=== PATIENT | male | born 1950 | race Caucasian/White ===

== ENCOUNTER → 2021-01-30 15:13 | Outpatient (POV) | payer OTHER, SELFPAY | PROVIDERS: Visit Provider Dermatology | DX: Z00.00 Encounter for general adult medical examination without abnormal findings (principal) ==

== ENCOUNTER → 2021-12-04 13:42 | Outpatient (CLI) | payer MEDICARE, SELFPAY ==
--- NOTE | 2021-12-04 13:52 | XR_ITS ---
FINAL REPORT CLINICAL HISTORY: R ANKLE PAIN FINDINGS: RIGHT ANKLE: Three views of the right ankle were obtained. There is no acute fracture or dislocation. There are moderate degenerative changes. There is valgus angulation at the tibiotalar joint. There is a small plantar calcaneal spur. There is soft tissue swelling. There are multiple soft tissue calcifications. IMPRESSION: Moderate degenerative changes with valgus angulation of the tibiotalar joint. Reviewed, Interpreted and Dictated by Reynold Duval III, MD Transcribed by Kobe Coon Authenticated and [facility]
== END ==
PROVIDERS: PCP Family Medicine; Visit Provider Family Medicine
DX: M25.571 Pain in right ankle and joints of right foot (principal)
CPT/HCPCS: 73610

== ENCOUNTER → 2022-03-15 09:16 | Outpatient (CLI) | payer MEDICARE, SELFPAY ==
--- NOTE | 2022-03-15 09:22 | XR_ITS ---
FINAL REPORT CLINICAL HISTORY: pain FINDINGS: Left ankle Three views were obtained. There is no acute fracture or dislocation. There are severe degenerative changes. There is widening of the medial ankle mortise. No soft tissue abnormality is identified. IMPRESSION: Severe degenerative changes. Reviewed, Interpreted and Dictated by Raisa Harvey MD Transcribed by Heidi Graham Authenticated and [facility]
== END ==
PROVIDERS: PCP Family Medicine; Visit Provider Orthopaedic Surgery
DX: M25.572 Pain in left ankle and joints of left foot (principal)
CPT/HCPCS: 73610

== ENCOUNTER → 2022-04-08 09:40 | Outpatient (CLI) | payer MEDICARE, OTHER, SELFPAY | PROVIDERS: PCP Family Medicine; Visit Provider Orthopaedic Surgery Adult Reconstructive Orthopaedic Surgery | DX: Z01.812 Encounter for preprocedural laboratory examination (principal); Z11.52 Encounter for screening for COVID-19 | CPT/HCPCS: C9803; U0003; U0005 ==

== ENCOUNTER 2023-12-09 11:16 | Outpatient (CLI) | payer MEDICARE, OTHER, SELFPAY ==
--- OUTSIDE RECORDS SUMMARY | 2023-12-09 11:19 | XMS_ITS ---
Author Organization [facility] Address [address] [place] [id number] Care Team Providers Care Chop Saw Operator Name Role Phone Sofia Eid Primary Care Provider [phone] ALLERGIES No Known Allergies RESULTS Component Value Reference Range Notes P-Comprehensive Metabolic Pa dale (CMP) Reviewed date:06/30/2023 10:14:36 AM Interpretation: Performing Lab: Notes/Report: Test performed by [facility] [address] [place] [address] , [address], [place] [address] Asad Chatman MD, Social Media Marketer CLIA: [id number] Sodium 140 135-145 mEq/L Potassium 4.7 3.5-5.3 mEq/L Chloride 108 97-108 mEq/L CO2 20 22-32 mEq/L Glucose 93 65-99 mg/dL BUN 38 8-23 mg/dL Creatinine 1.42 0.70-1.30 mg/dL Calcium 9.5 8.6-10.4 mg/dL eGFR by Creatinine 53 >59 mL/min/1.73m2 Protein 6.7 6.0-8.3 g/dL Albumin 4.3 3.5-5.3 g/dL Alkaline Phosphatase 76 40-129 IU/L ALT (SGPT) 14 <5-55 IU/L AST (SGOT) 18 <5-46 IU/L Bilirubin, Total 0.5 <0.2-1.2 mg/dL A/G Ratio 1.8 1.1-2.5 mg/dL P-Lipid Panel Reviewed date:06/30/2023 10:14:36 AM Interpretation: Performing Lab: Notes/Report: Test performed by [facility], [address] [place] [address] Asad Chatman MD, Social Media Marketer CLIA: [id number] Cholesterol 135 <200 mg/dL Triglycerides 123 <150 mg/dL HDL Cholesterol 31 >39 mg/dL Cholesterol / HDL Ratio 4.35 0.00-4.99 Ratio Non-HDL Cholesterol 104 <130 mg/dL LDL Cholesterol (Calculation) 79 <130 mg/dL LDL Cholesterol Levels* Less than 100 mg/dL Optimal 100 to 129 mg/dL Near Optimal/ Above Optimal 130 to 159 mg/dL Borderline High 160 to 189 mg/dL High 190 mg/dL and above Very High * Categories as recommended by the 2004 ATPIII guidelines LDL/HDL Ratio 2.6 <3.3 Ratio LDL Cholesterol Patient History Test Date: 06/26/2023 LDL Results: 79 Units: mg/dL % Change: - P-PSA Reviewed date:06/30/2023 10:14:36 AM Interpretation: Performing Lab: Notes/Report: Test performed by [facility] [address] [place], [place] [address] Asad Chatman MD, Social Media Marketer CLIA: [id number] PSA 0.21 <4.00 ng/mL Please note this is an ultrasensitive PSA assay with a lower limit of detection of 0.014 ng/mL. This test is performed by the [employer] ECLIA methodology. Values obtained with different assay methods or kits cannot be directly compared. P-Uric Acid Reviewed date:06/30/2023 10:14:36 AM Interpretation: Performing Lab: Notes/Report: Test performed by [facility] [address] [place] [address] , [address], [place] [address] Asad Chatman MD, Social Media Marketer CLIA: [id number] Uric Acid 5.7 3.4-8.0 mg/dL REASON FOR VISIT refills, Needs labs with PSA & colon cancer screening MEDICATIONS Medication SIG (Take, Route, Frequency, Duration) Notes Start Date End Date Status Aspirin 81 81MG DIRECTED QD Active Meloxicam 7.5 MG 1 tab(s) orally once a day Active traMADol HCl 50 MG 1 tab(s) orally thre e times a day as needed 01/17/2022 Active Fish Oil 1000MG 2 A DAY P.O. DAILY Active Niacin 250 MG 1 tab(s) orally TID Active Lisinopril-hydroCHLOROthiaz mikal 20-12.5 MG 1 tab(s) orally once a day Active Allopurinol 300 MG 1 tab(s) orally once a day Active Metoprolol Tartrate 50 MG 1 tab(s) orall y Two times a day Active Lovastatin 20 MG 2 tab(s) orally once a day Active VITAL SIGNS Weight 241.6 lbs 06/26/2023 Blood pressure systolic 134 mm Hg 06/26/19 24 Blood pressure diastolic 72 mm Hg 024 Heart Rate 58 /min 06/26/2023 Height 70 in 06/26/2023 BMI 34.66 kg/m2 06/26/2023 Encounters Encounter Location Date Provider Diagnosis [facility] [address] [place] [id number] 06/26/2023 Sofia Eid HTN (hypertension) I 10 ; Mixed hyperlipidemia E78.2 ; Hyperuricemia E79.0 ; Primary osteoarthritis M19.91 and Screening for prostate cancer Z12.5 ASSESSMENTS Encounter Date Diagnosis Assessment Notes Treatment Notes Treatment Clinical Notes 06/26/2023 HTN (hypertension) (ICD-10 - I10) 06/26/2023 Mixed hyperlipidemia (ICD-10 - E78.2) 06/26/2023 Hyperuricemia (ICD-1 0 - E79.0) 06/26/2023 Primary osteoarthritis (ICD-10 - M19.91) 06/26/2023 Screening for prostate cancer (ICD-10 - Z12.5) PLAN OF TREATMENT Medication Medication Name Sig Start Date Stop Date Notes Meloxicam 7.5 MG 1 tab(s) orally once a day Lisinopril-hydroCHLOROthiazi de 20-12.5 MG 1 tab(s) orally once a day Allopurinol 300 MG 1 tab(s) orally once a day Metoprolol Tartrate 50 MG 1 tab(s) orall y Two times a day Lovastatin 20 MG 2 tab(s) orally once a day Next Appt Details Follow Up: 6 Months, Reason: Progress Notes * Examination Category Sub-Category Detail Notes Cardiology Lungs: clear, no rales or wheezes HEENT: sclera and conjuncti va clear, PERRLA, TM's normal, translucent Heart sounds: RRR, normal S1, S2 Abdomen: positive BS, soft, n ontender Carotid upstroke: normal, no bruits Extremities: no leg edema. He is wearing ankle braces bilaterally. Murmur, click , gallop: none General Appearance: pleasant, NAD. History and Physical Notes * HPI (History of Present Illness) Category Sub-Category Detail Notes Cardiology Blood Pressure Elevated Pt prese nts today for a check up and refills. Pt is fasting today. Pt sts that he has no new concerns or complaints at this time
--- OUTSIDE RECORDS SUMMARY | 2023-12-09 11:19 | XMS_ITS ---
Author Organization [facility] Address [address] [facility] [address] [place] [id number] Care Team Providers Care Taxi Dancer Name Role Phone Sofia Eid Primary Care Provider REASON FOR VISIT Test results Encounters Encounter Location Date Provider Diagnosis [facility] [address] [place] [id number] 06/30/2023 Sofia Eid PLAN OF TREATMENT No Information
--- OUTSIDE RECORDS SUMMARY | 2023-12-09 11:19 | XMS_ITS ---
Author Organization [facility] Address [address] [place] [id number] Care Team Providers Care Marketing Ambassador Name Role Phone Sofia Eid Primary Care Provider ALLERGIES No Known Allergies REASON FOR VISIT check up and refills, Needs labs, colon cancer screening, & flu vaccine MEDICATIONS Medication SIG (Take, Route, Frequency, Duration) Notes Start Date End Date Status Metoprolol Tartrate 50 MG 1 tab(s) orall y Two times a day Active Lisinopril-hydroCHLOROthiaz mikal 20-12.5 MG 1 tab(s) orally once a day Active Allopurinol 300 MG 1 tab(s) orally once a day Active Allopurinol 300 MG 1 tab(s) orally once a day Active Lovastatin 20 MG 2 tab(s) orally once a day Active Fish Oil 1000MG 2 A DAY P.O. DAILY Active Niacin 250 MG 1 tab(s) orally TID Active traMADol HCl 50 MG 1 tab(s) orally thre e times a day as needed 01/17/2022 Active Lovastatin 20 MG 2 tab(s) orally once a day Active Lisinopril-hydroCHLOROthiaz mikal 20-12.5 MG 1 tab(s) orally once a day Active Meloxicam 7.5 MG 1 tab(s) orally once a day Active Aspirin 81 81MG DIRECTED QD Active IMMUNIZATIONS Vaccine Route Administration Date Status Comme nts Fluzone High Dose (65yr and older) IM Intramuscular 12/09/2023 Administered VITAL SIGNS Weight 243.6 lbs 12/09/2023 Blood pressure systolic 126 mm Hg 12/09/19 24 Blood pressure diastolic 78 mm Hg 024 Heart Rate 53 /min 12/09/2023 Height 70 in 12/09/2023 BMI 34.95 kg/m2 12/09/2023 Encounters Encounter Location Date Provider Diagnosis [facility] [address] [facility] [address] [place] [id number] 12/09/2023 Sofia Eid HTN (hypertension) I 10 ; Mixed hyperlipidemia E78.2 ; Hyperuricemia E79.0 ; Primary osteoarthritis M19.91 ; Screening for prostate cancer Z12.5 and Encounter for immunization Z23 ASSESSMENTS Encounter Date Diagnosis Assessment Notes Treatment Notes Treatment Clinical Notes 12/09/2023 HTN (hypertension) (ICD-10 - I10) 12/09/2023 Mixed hyperlipidemia (ICD-10 - E78.2) 12/09/2023 Hyperuricemia (ICD-1 0 - E79.0) 12/09/2023 Primary osteoarthritis (ICD-10 - M19.91) 12/09/2023 Screening for prostate cancer (ICD-10 - Z12.5) 12/09/2023 Encounter for immunization (ICD-10 - Z23) PLAN OF TREATMENT Medication Medication Name Sig Start Date Stop Date Notes Metoprolol Tartrate 50 MG 1 tab(s) orall y Two times a day Lisinopril-hydroCHLOROthiazi de 20-12.5 MG 1 tab(s) orally once a day Allopurinol 300 MG 1 tab(s) orally once a day Lovastatin 20 MG 2 tab(s) orally once a day Meloxicam 7.5 MG 1 tab(s) orally once a day Pending Test Test Name Order Date P-Comprehensive Metabolic Panel (CMP) P-Lipid Panel 12/09/2023 P-Uric Acid 12/09/2023 Next Appt Details Follow Up: 6 Months, [...] of Present Illness) Category Sub-Category Detail Notes Endocrinology Maintenance Pt presents toda y for a check up and refills. Pt is fasting today and would like to get his flu shot today. Pt sts that he has no new concerns or complaints at this time
--- OUTSIDE RECORDS SUMMARY | 2023-12-09 11:20 | XMS_ITS | Patient Health Record ---
Author Organization [facility] Address [address] [place] [id number] Care Team Providers Care Dog Bather Name Role Phone Sofia Eid Primary Care Provider ALLERGIES No Known Allergies RESULTS Component Value Reference Range Notes Glycohemoglobin A1c (in hous e) Reviewed date:12/26/2022 08:52:38 AM Interpretation:5.7 Performing Lab: Notes/Report: 5.7 glycohemoglobin 5.7% 5 - 6.5 % Lipid Panel (in house) Reviewed date:12/26/2022 08:52:38 AM Interpretation: Performing Lab: Notes/Report: Total Cholesterol 128 0 - 200 md/dL HDL 30 45 - 45 mg/dL Trigs 127 0 - 150 LDL 73 0 - 100 mg/dL non-HDL 98 TC/HDL 4.3 P-Comprehensive Metabolic Pa dale (CMP) Reviewed date:12/26/2022 08:52:38 AM Interpretation:bun 40 Performing Lab: Notes/Report: Test performed by [facility] , [address], [place] [address] Asad Chatman MD, Fund Development Manager CLIA: [id number] Sodium 138 135-145 mEq/L Potassium 4.8 3.5-5.3 mEq/L Chloride 102 97-108 mEq/L CO2 25 22-32 mEq/L Glucose 92 65-99 mg/dL BUN 40 8-23 mg/dL Creatinine 1.24 0.70-1.30 mg/dL Calcium 9.3 8.6-10.4 mg/dL eGFR by Creatinine 62 >59 mL/min/1.73m2 Protein 7.0 6.0-8.3 g/dL Albumin 4.3 3.5-5.3 g/dL Alkaline Phosphatase 70 40-129 IU/L ALT (SGPT) 16 <5-55 IU/L AST (SGOT) 16 <5-46 IU/L Bilirubin, Total 0.5 <0.2-1.2 mg/dL A/G Ratio 1.6 1.1-2.5 mg/dL P-Uric Acid Reviewed date:12/26/2022 08:52:38 AM Interpretation:Normal Performing Lab: Notes/Report: Test performed by [facility] [address] [place] [address] , [address], [place] [address] Asad Chatman MD, Fund Development Manager CLIA: [id number] Uric Acid 6.0 3.4-8.0 mg/dL P-Comprehensive Metabolic Pa dale (CMP) Reviewed date:06/30/2023 10:14:36 AM Interpretation: Performing Lab: Notes/Report: Test performed by [facility] [address] [place] [address] , [address], [place] [address] Asad Chatman MD, Fund Development Manager CLIA: [id number] Sodium 140 135-145 mEq/L Potassium 4.7 3.5-5.3 [...] Interpretation: Performing Lab: Notes/Report: Test performed by [facility] [address] [place] [address] [place] [address] Asad Chatman MD, Fund Development Manager CLIA: [id number] Cholesterol 135 <200 mg/dL Triglycerides 123 <150 [...] Interpretation: Performing Lab: Notes/Report: Test performed by [facility] [address] [place], [place] [address], [place] [address] Asad Chatman MD, Fund Development Manager CLIA: [id number] PSA 0.21 <4.00 ng/mL Please note this is an ultrasensitive PSA assay with a lower limit of detection of 0.014 ng/mL. This test is performed by the [employer] ECLIA methodology. Values obtained with different assay methods or kits cannot be directly compared. P-Uric Acid Reviewed date:06/30/2023 10:14:36 AM Interpretation: Performing Lab: Notes/Report: Test performed by [facility] [address] [place] [address] , [address], [place] [address] Asad Chatman MD, Fund Development Manager CLIA: [id number] Uric Acid 5.7 3.4-8.0 mg/dL REASON FOR REFERRAL No Information MEDICATIONS Medication SIG (Take, Route, Frequency, Duration) Notes Start Date End Date Status Metoprolol Tartrate 50 MG 1 tab(s) orall y Two times a day Active Lisinopril-hydroCHLOROthiaz mikal 20-12.5 MG 1 tab(s) orally once a day Active Meloxicam 7.5 MG 1 tab(s) orally once a day Active Aspirin 81 81MG DIRECTED QD Active Fish Oil 1000MG 2 A DAY P.O. DAILY Active Allopurinol 300 MG 1 tab(s) orally once a day Active Allopurinol 300 MG 1 tab(s) orally once a day Active Lovastatin 20 MG 2 tab(s) orally once a day Active Niacin 250 MG 1 tab(s) orally TID Active traMADol HCl 50 MG 1 tab(s) orally thre e times a day as needed 01/17/2022 Active Lovastatin 20 MG 2 tab(s) orally once a day Active Lisinopril-hydroCHLOROthiaz mikal 20-12.5 MG 1 tab(s) orally once a day Active IMMUNIZATIONS Vaccine Route Administration Date Status Comme nts COVID 19 Moderna Unknown 04/19/2020 Administered COVID 19 Moderna Unknown 05/17/2020 Administered COVID 19 Moderna Unknown 12/13/2020 Administered Fluzone High Dose (65yr and older) IM Intramuscular 11/04/2017 Administered Fluzone High Dose (65yr and older) IM Intramuscular 12/04/2018 Administered Fluzone High Dose (65yr and older) IM Intramuscular 10/19/2019 Administered Fluzone High Dose (65yr and older) IM Intramuscular 11/22/2020 Administered Fluzone High Dose (65yr and older) IM Intramuscular 12/04/2021 Administered Fluzone High Dose (65yr and older) IM Intramuscular 11/26/2022 Administered Fluzone High Dose (65yr and older) IM Intramuscular 12/09/2023 Administered Fluzone Quad (6months&older) IM Intramuscular 10/25/2014 Administered Fluzone Quad (6months&older) IM Intramuscular 10/27/2015 Administered Fluzone Quad (6months&older) IM Intramuscular 11/01/2016 Administered Hepatitis A (adult) IM Intramuscular 08/03/2018 Administer ed PNEUMOVAX 23 VACCINE IM Intramuscular 11/25/2012 Administered PNEUMOVAX 23 VACCINE IM Intramuscular 07/21/[address] given by [address] [facility] PNEUMOVAX 23 VACCINE Unknown 07/21/2020 Administered Prevnar (PCV13) IM Intramuscular 11/04/2017 Administered Shingrix Unknown 11/04/2017 Pending Shingrix Unknown 12/03/2017 Administered Shingrix Unknown 03/18/2018 Administered Tetanus Tdap-Adacel (over 7yrs) IM Intramuscular 02/02/2008 Administered Tetanus Tdap-Adacel (over 7yrs) IM Intramuscular 11/04/2017 Administered xFlu shot-36 months and older IM Intramuscular 12/30/2005 Administered xFlu shot-36 months and older IM Intramuscular 02/05/2007 Administered xFlu shot-36 months and older IM Intramuscular 12/11/2007 Administered xFlu shot-36 months and older IM Intramuscular 11/10/2008 Administered xFlu shot-36 months and older IM Intramuscular 01/16/2010 Administered xFlu shot-36 months and older IM Intramuscular 01/14/2011 Administered xFluzone (6mos and older)-trivalent IM Intramuscular 01/28/2012 Administered xFluzone (6mos and older)-trivalent IM Intramuscular 11/08/2013 Administered xFluzone Intradermal (18-64yrs)-trivalen t ID Intradermal 11/25/2012 Administered SOCIAL HISTORY Sex Assigned At : Social History Observation Description Sex Assigned At Unknown PROBLEMS Problem Type ICD Code Onset Dates Problem Status W/U Status Risk SNOMED Code Notes Problem HTN (hypertension) (I10) Active confirmed Hypertension (15912333) Problem Otitis externa (H60.90) Active confirmed Otitis externa (5780936) Problem Hyperuricemia (E79.0) Active confirmed Hyperuricemia (45589239) Problem Mixed hyperlipidemia (E78.2) Active confirmed Mixed hyperlipidemia (658193922) Problem Presence of right artificial hip joint (Z96.641) Active confirmed 701163346 Problem Presence of left artificial hip joint (Z96.642) Active confirmed History of artificial joint (003628090) Problem BMI 35.0-35.9,adult (Z68.35) Active confirmed 322360833 Problem Primary osteoarthritis (M19.91) Active confirmed Primary osteoarthritis (598048889) Problem BMI 34.0-34.9,adult (Z68.34) Active confirmed 033574377 Problem Former smoker (Z87.891) Active confirmed 1945552 Problem Basal cell carcinoma, face (C44.310) Active confirmed 627267143 VITAL SIGNS Heart Rate 53 /min 12/09/2023 Blood pressure diastolic 78 mm Hg 12/09/2023 Height 70 in 12/09/2023 Blood pressure systolic 126 mm Hg 12/09/2023 Weight 243.6 lbs 12/09/2023 BMI 34.95 kg/m2 12/09/2023 Encounters Encounter Location Date [facility] [address] [id number] 12/24/2022 R Darion Ragini HTN (hypertension) I 10 ; Mixed hyperlipidemia E78.2 ; Hyperuricemia E79.0 ; Primary osteoarthritis M19. and Screening for prostate cancer Z12.5 [facility] [address] [id number] 12/26/2022 R Darion Ragini [facility] [address] [id number] 06/26/2023 R Darion Ragini HTN (hypertension) I 10 ; Mixed hyperlipidemia E78.2 ; Hyperuricemia E79.0 ; Primary osteoarthritis M19.91 and Screening for prostate cancer Z12.5 [facility] [address] [place] [id number] 06/30/2023 R Darion Ragini [facility] [address] [place], [place] [id number] 12/09/2023 R Darion Ragini HTN (hypertension) I 10 ; Mixed hyperlipidemia E78.2 ; Hyperuricemia E79.0 ; Primary osteoarthritis M19.91 ; Screening for prostate cancer Z12.5 and Encounter for immunization Z23 ASSESSMENTS Encounter Date Diagnosis Assessment Notes Treatment Notes Treatment Clinical Notes 12/24/2022 HTN (hypertension) (ICD-10 - I10) 12/24/2022 Mixed hyperlipidemia (ICD-10 - E78.2) 06/26/2023 HTN (hypertension) (ICD-10 - I10) 06/26/2023 Mixed hyperlipidemia (ICD-10 - E78.2) 12/09/2023 HTN (hypertension) (ICD-10 - I10) 12/09/2023 Mixed hyperlipidemia (ICD-10 - E78.2) 12/09/2023 Hyperuricemia (ICD-1 0 - E79.0) 06/26/2023 Hyperuricemia (ICD-1 0 - E79.0) 12/24/2022 Hyperuricemia (ICD-1 0 - E79.0) 12/24/2022 Primary osteoarthritis (ICD-10 - M19.91) 06/26/2023 Primary osteoarthritis (ICD-10 - M19.91) 12/09/2023 Primary osteoarthritis (ICD-10 - M19.91) 12/09/2023 Screening for prostate cancer (ICD-10 - Z12.5) 06/26/2023 Screening for prostate cancer (ICD-10 - Z12.5) 12/24/2022 Screening for prostate cancer (ICD-10 - Z12.5) [facility] would not perform screening PSA stating it was too early to repeat his PSA. 12/09/2023 Encounter for immunization (ICD-10 - Z23) PLAN OF TREATMENT Pending Test Test Name Order Date X ray : Ankle, right 01/23/2021 P-Comprehensive Metabolic Panel (CMP) P-Lipid Panel 12/09/2023 P-Uric Acid 12/09/2023 Insurance Providers Payer Name Payer Address Payer Phone Subscriber Number Group Number Insured Name Patient Relationship to Insured Coverage Start Date Coverage End Date [employer] (MEDICAR E) [address] [address] [place] [address] [phone] [id number] SHLOMO YING Self - patient is the insured MEDICAL (GENERAL) HISTORY Medical History History ICD Code HTN skin cancer HLP facial tic Hyperuricemia OA Former smoker - quit 2007 Declines colon cancer screen ing - 03/2017, 05/2018, 11/2018, 10/2019; 07/2020; 07/2021; 06/2022 Surgical History Surgery Date(Month/Year) tonsillectomy skin cancer 2003 right hip replacement 2007 skin cancer right side of nose 03/2021 Total Left Hip Replacement/ Dr. Rubio/ [facility] 04/11/2022 Hospitalization History Reason Date(Month/Year) right hip replacement/ [facility] Matthews/ mar
--- NOTE | 2023-12-09 11:23 | XR_ITS ---
PROCEDURE INFORMATION: Exam: XR Left Ankle Exam date and time: 12/09/2023 11:25 AM Age: 73 years old Clinical indication: Pain; Ankle; Bilateral; Additional info: Ankle pain TECHNIQUE: Imaging protocol: Radiologic exam of the left ankle. Views: 3 or more views. COMPARISON: CR XR ANKLE LT MIN 3V 03/15/2022 9:32 AM FINDINGS: Bones/joints: Severe end-stage osteoarthritis tibiotalar joint. Complete obliteration of the joint space with reactive subchondral sclerosis noted. The degree of joint space narrowing has worsened from the prior x-ray. No acute fracture. Note is made of a prominent plantar calcaneal enthesophyte. No evidence for osseous erosion at the tip. Moderate degenerative related joint effusion tibiotalar joint. Soft tissues: Normal. IMPRESSION: 1. Severe end-stage osteoarthritis tibiotalar joint. Complete obliteration of the joint space with reactive subchondral sclerosis noted. The degree of joint space narrowing has worsened from the prior x-ray. 2. No evidence for acute fracture. 3. Moderate degenerative related joint effusion tibiotalar joint.
--- NOTE | 2023-12-09 11:23 | XR_ITS ---
PROCEDURE INFORMATION: Exam: XR Right Ankle Exam date and time: 12/09/2023 11:25 AM Age: 73 years old Clinical indication: Pain; Ankle; Bilateral; Additional info: Ankle pain TECHNIQUE: Imaging protocol: Radiologic exam of the right ankle. Views: 3 or more views. COMPARISON: CR XR ANKLE RT MIN 3V 12/04/2021 1:54 PM FINDINGS: Bones/joints: End-stage osteoarthritis of the tibiotalar joint. There is degenerative lateral angulation of the talus with respect to the tibia by approximately 30 degrees. There is degenerative subchondral cyst formation and subchondral sclerosis. No acute fracture. Soft tissues: Old dystrophic calcifications within the deltoid ligament region. IMPRESSION: 1. End-stage osteoarthritis of the tibiotalar joint. There is degenerative lateral angulation of the talus with respect to the tibia by approximately 30 degrees. There is degenerative subchondral cyst formation and subchondral sclerosis. 2. No evidence for acute fracture. 3. Old dystrophic calcifications within the deltoid ligament region.
== END 2023-12-09 23:59 | disposition home or self-care (01) ==
LOC: RAD 11:17
PROVIDERS: PCP Family Medicine; Visit Provider Physician Assistant Surgical
DX: M25.571 Pain in right ankle and joints of right foot (principal); M25.572 Pain in left ankle and joints of left foot
CPT/HCPCS: 73610